=== PATIENT | female | born 1975 | race Caucasian/White ===

== ENCOUNTER 2016-10-13 14:17 | Emergency (ER) | payer MEDICAID, OTHER ==
[~2016-10-13] VITALS: Ht 165.1 cm; Wt 74.8 kg
[~2016-10-13 14:17] MED LIST: AC500T PO; ASP81TEC PO; DOCU100T7 PO; FLUO40CA12 PO; GABA-486 PO; HYDR-700 PO; IBP600T1 PO; IBUP-15 PO; PREN1TAB39 PO
[2016-10-13] MEDS ORDERED: KETOROLAC 30 MG/ML VIAL IVP ONE (14:45)
[2016-10-13] MEDS ORDERED: PROCHLORPERAZINE 10 MG/2ML INJ (COMPAZINE) IV ONE (14:45)
[2016-10-13] MEDS ORDERED: diphenhydrAMINE 50 MG/ML INJ (BENADRYL) IVP ONE (14:45)
--- NOTE | 2016-10-13 14:57 | ED Neurological Problem ---
General Chief Complaint: Trauma-Non Activation Stated Complaint: NAUSEA, HEADACHES FROM FALL History of Present Illness Time seen by provider: 14:30 Initial Comments Patient reports approximately 2 weeks ago she was leaning forward as she began to stand up she hit her head on the cabinet above her. Since then she's been having a constant headache and feels like her head is being compressed. She has tried Tylenol with no improvement in her symptoms. Timing/Duration: constant Severity: moderate Associated Symptoms: fatigue, No loss of consciousness, muscle spasms ( cervical spine), nausea/vomiting (nausea, no vomiting), No numbness in legs/feet , No paresthesia, No ringing in ears, No seizures, No slurred speech, No tingling in legs/feet, No vision changes, No weakness Allergies and Home Medications Allergies Coded Allergies: hydrocodone (Verified Allergy, Unknown, itching all over body, 01/12/15) Home Medications Fluoxetine HCl 40 Mg Capsule, 40 MG PO DAILY, (Reported) Gabapentin 100 Mg Capsule, 200 MG PO HS, (Reported) take 2 (100mg) tabs Hydroxyzine HCl 25 Mg Tablet, 25 MG PO Q8H PRN for ANXIETY, (Reported) Ibuprofen 200 Mg Tablet, 600 MG PO q6 PRN for CRAMPS, #60 Prescribed by: CANDIS BREWER on 01/20/15 1011 Constitutional: see HPI, dizziness, weakness Eyes: No Symptoms Reported, See HPI Ears, Nose, Mouth, Throat: no symptoms reported, see HPI Respiratory: no symptoms reported, see HPI Cardiovascular: no symptoms reported, see HPI Gastrointestinal: no symptoms reported, see HPI Genitourinary: no symptoms reported, see HPI Musculoskeletal: no symptoms reported, see HPI Skin: no symptoms reported, see HPI Psychiatric/Neurological: See HPI, Headache Endocrine: No Symptoms Reported, See HPI Hematologic/Lymphatic: No Symptoms Reported, See HPI All Other Systems Reviewed Negative Unless Noted: Yes Past Vdydpan-Pprkgm-Wemabz Hx Patient Social History Alcohol Use: Occasionally Uses Recreational Drug Use: Yes (marijuana- "takes for nausea") Smoking Status: Current Everyday Smoker Recent Foreign Travel: No Contact w/Someone Who Travel: No Recent Hopitalizations: Yes Immunizations Up To Date Date of Influenza Vaccine: Apr 13, 2011 Surgeries HX Surgeries: Yes (D&C/HYSTEROSCOPY/ENDOMETRIAL ABLATION 01/20/15-DR. BREWER) Surgeries: Adenoidectomy, Gallbladder, Tonsillectomy, Tubal Ligation Respiratory Hx Respiratory Disorders: Yes Respiratory Disorders: Asthma Cardiovascular Hx Cardiac Disorders: No Neurological Hx Neurological Disorders: No Reproductive System Hx Reproductive Disorders: Yes Genitourinary Hx Genitourinary Disorders: No Gastrointestinal Hx Gastrointestinal Disorders: No Musculoskeletal Hx Musculoskeletal Disorders: No (RESTLESS LEGS) Endocrine Hx Endocrine Disorders: No HEENT HX ENT Disorders: No Psychosocial Hx Psychiatric Problems: Yes Behavioral Health Disorders: Anxiety, Bipolar, Depression Integumentary HX Skin/Integumentary Disorder: No Blood Transfusions Hx Blood Disorders: No Reviewed Nursing Assessment Reviewed/Agree w Nursing PMH: Yes Physical Exam Vital Signs Vital Sign - Last 12Hours 10/13/16 14:32 Temp 97.8 Pulse 78 Resp 18 B/P (MAP) 157/94 Pulse Ox 98 O2 Delivery Room Air Capillary Refill : General Appearance: WD/WN, no apparent distress HEENT: PERRL/EOMI, normal ENT inspection, TMs normal, pharynx normal Neck: full range of motion, supple, normal inspection, tender lateral ( bilaterally) Respiratory: chest non-tender, lungs clear, normal breath sounds Cardiovascular: normal peripheral pulses, regular rate, rhythm, no edema, no murmur Gastrointestinal: normal bowel sounds, non tender, soft, No guarding, No rebound, No tenderness Extremities: normal range of motion, non-tender, normal inspection, no calf tenderness, normal capillary refill Neurologic/Psychiatric: internet marketing executive II-XII nml as tested (grossly intact), no motor/ sensory deficits, alert, oriented x 3, other (flat affect) Crainal Nerves: normal hearing, normal speech, PERRL Coordination/Gait: normal finger to nose, normal gait, negative Romberg's sign Skin: normal color, warm/dry Lymphatic: no adenopathy Progress/Results/Core Measures Results/Orders Lab Results Laboratory Tests Test 10/13/16 14:47 10/13/16 15:22 Range/Units Urine Color YELLOW Urine Clarity CLEAR Urine pH 7 5-9 Urine Specific [place] 1.005 L 1.016-1.022 Urine Protein NEGATIVE NEGATIVE Urine Glucose (UA) NEGATIVE NEGATIVE Urine Ketones NEGATIVE NEGATIVE Urine Nitrite NEGATIVE NEGATIVE Urine Bilirubin NEGATIVE NEGATIVE Urine Urobilinogen NORMAL NORMAL MG/DL Urine Leukocyte Esterase 1+ H NEGATIVE Urine RBC (Auto) 2+ H NEGATIVE Urine RBC 0-2 /HPF Urine WBC RARE /HPF Urine Squamous Epithelial Cells 5-10 /HPF Urine Crystals NONE /LPF Urine Bacteria NEGATIVE /HPF Urine Casts NONE /LPF Urine Mucus NEGATIVE /LPF Urine Culture Indicated NO White Blood Count 6.6 4.3-11.0 10^3/uL Red Blood Count 4.27 L 4.35-5.85 10^6/uL Hemoglobin 13.2 11.5-16.0 G/DL Hematocrit 38 35-52 % Mean Corpuscular Volume 89 80-99 FL Mean Corpuscular Hemoglobin 31 25-34 PG Mean Corpuscular Hemoglobin Concent 35 32-36 G/DL Red Cell Distribution Width 13.4 10.0-14.5 % Platelet Count 183 130-400 10^3/uL Mean Platelet Volume 10.1 7.4-10.4 FL Neutrophils (%) (Auto) 54 42-75 % Lymphocytes (%) (Auto) 36 12-44 % Monocytes (%) (Auto) 8 0-12 % Eosinophils (%) (Auto) 1 0-10 % Basophils (%) (Auto) 1 0-10 % Neutrophils # (Auto) 3.6 1.8-7.8 X 10^3 Lymphocytes # (Auto) 2.4 1.0-4.0 X 10^3 Monocytes # (Auto) 0.5 0.0-1.0 X 10^3 Eosinophils # (Auto) 0.1 0.0-0.3 10^3/uL Basophils # (Auto) 0.0 0.0-0.1 10^3/uL Sodium Level 143 135-145 MMOL/L Potassium Level 3.6 3.6-5.0 MMOL/L Chloride Level 111 H 98-107 MMOL/L Carbon Dioxide Level 24 21-32 MMOL/L Anion Gap 8 5-14 MMOL/L Blood Urea Nitrogen 8 7-18 MG/DL Creatinine 0.74 0.60-1.30 MG/DL Estimat Glomerular Filtration Rate > 60 BUN/Creatinine Ratio 11 Glucose Level 94 70-105 MG/DL Calcium Level 9.7 8.5-10.1 MG/DL Total Bilirubin 0.3 0.1-1.0 MG/DL Aspartate Amino Transf (AST/SGOT) 14 5-34 U/L Alanine Aminotransferase (ALT/SGPT) 15 0-55 U/L Alkaline Phosphatase 38 L 40-136 U/L Total Protein 6.8 6.4-8.2 GM/DL Albumin 4.3 3.2-4.5 GM/DL My Orders Orders - PK SHEPARDP Ct Head Wo (10/13/16 14:43) Cbc With Automated Diff (10/13/16 14:43) Comprehensive Metabolic Panel (10/13/16 14:43) Ua Culture If Indicated (10/13/16 14:43) Diphenhydramine Injection (Benadryl Inje (10/13/16 14:45) Prochlorperazine Injection (Compazine In (10/13/16 14:45) Ketorolac Injection (Toradol Injection) (10/13/16 14:45) Saline Lock/Iv-Start (10/13/16 15:35) Saline Lock/Iv-Start (10/13/16 15:36) Ns Iv 1000 Ml (Sodium Chloride 0.9%) (10/13/16 15:36) Medications Given in ED Current Medications Medications Dose Ordered Sig/Ken Route Start Time Stop Time Status Last Admin Dose Admin Diphenhydramine HCl 25 mg ONCE ONCE IVP 10/13/16 14:45 10/13/16 14:46 DC 10/13/16 15:25 25 MG Ketorolac Tromethamine 30 mg ONCE ONCE IVP 10/13/16 14:45 10/13/16 14:46 DC 10/13/16 15:27 30 MG Prochlorperazine Edisylate 10 mg ONCE ONCE IV 10/13/16 14:45 10/13/16 14:46 DC 10/13/16 15:24 10 MG Sodium Chloride 1,000 ml @ 0 mls/hr Q0M ONCE IV 10/13/16 15:36 10/13/16 15:37 DC 10/13/16 15:42 1,000 MLS/HR Vital Signs/I&O Vital Sign - Last 12Hours 10/13/16 14:32 Temp 97.8 Pulse 78 Resp 18 B/P (MAP) 157/94 Pulse Ox 98 O2 Delivery Room Air Progress Note : Time: 14:30 Progress Note Initial evaluation completed, obtain CT head, IV normal saline 1 L, Toradol 30 mg IV, Benadryl 25 mg IV, Compazine 10 mg IV, then reevaluate. 1330 patient reports slight improvement of her headache. 1400 She was able to sleep approximately 15 minutes. Reports headache has improved. 1435 Will plan for discharge after IV infuses Diagnostic Imaging Diagonstic Imaging: CT Plain Films/CT/US/NM/MRI: head Comments NAME: ROSAMARIA CONKLIN [facility] REC#: [id number] PT STATUS: REG ER : 1975 PHYSICIAN: PK SHEPARD ADMIT DATE: 10/13/16/ER Draft Date of Exam:10/13/16 CT HEAD WO PROCEDURE: CT head without contrast. TECHNIQUE: Multiple contiguous axial images were obtained through the brain without the use of intravenous contrast. INDICATION: Headache and dizziness. COMPARISON: None. FINDINGS: Ventricles are normal in size, shape and position. There is no midline shift or mass effect. There is no hemorrhage or evidence of acute ischemia. The bony calvarium is normal. IMPRESSION: No acute intracranial abnormality. Dictated on workstation # [id number] Dict: 10/13/16 1505 Trans: 10/13/16 1531 [id number] Interpreted by: ARTHUR SUAZO Electronically signed by: Reviewed: Reviewed by Me Departure Impression Impression: Primary Impression: Contusion of head Qualified Codes: S00.03XA - Contusion of scalp, initial encounter Additional Impression: Migraine Qualified Codes: G43.019 - Migraine without aura, intractable, without status migrainosus Disposition: 01 HOME, SELF-CARE Condition: Improved Departure-Patient Inst. Decision time for Depature: 16:25 Referrals: [facility] (PCP) Primary Care Physician Patient Instructions: Migraine Headache (DC), Minor Head Injury (DC) Add. Discharge Instructions: Increase water intake, one bottle every other hour. Use Excedrin for instructions on bottle for headaches. Follow-up with primary care provider if no improvement in symptoms. Return to emergency room for increased dizziness, worsening of pain, change in neurological status, or new problems. All discharge instructions reviewed with patient and/or family. Voiced understanding. Copy Copies To 1: STAR MUNSON MD, AMY ARNP Oct 13, 2016 14:57
[2016-10-13 14:58] LABS: BILIRUBIN,URINE NEGATIVE (NEGATIVE); KETONES,URINE NEGATIVE (NEGATIVE); LEUKOCYTE ESTERASE ,URINE 1+ (NEGATIVE); NITRITE,URINE NEGATIVE (NEGATIVE); PH,URINE 7 (5-9); PROTEIN,URINE NEGATIVE (NEGATIVE); UROBILINOGEN,URINE NORMAL (NORMAL)
[2016-10-13 15:08] LABS: WBC,URINE RARE /HPF
--- NOTE | 2016-10-13 15:09 | Diagnostic Imaging Report ---
PROCEDURE: CT head without contrast. TECHNIQUE: Multiple contiguous axial images were obtained through the brain without the use of intravenous contrast. INDICATION: Headache and dizziness. COMPARISON: None. FINDINGS: Ventricles are normal in size, shape and position. There is no midline shift or mass effect. There is no hemorrhage or evidence of acute ischemia. The bony calvarium is normal. IMPRESSION: No acute intracranial abnormality. Dictated by: Dictated on workstation # [id number]
[2016-10-13 15:34] LABS: BASOPHILS % (AUTO) 1 % (0-10); EOSINOPHILS # (AUTO) 0.1 10^3/uL (0.0-0.3); EOSINOPHILS % (AUTO) 1 % (0-10); LYMPHOCYTES # (AUTO) 2.4 X 10^3 (1.0-4.0); LYMPHOCYTES % (AUTO) 36 % (12-44); MEAN CORPUSCULAR HEMOGLOBIN 31 PG (25-34); MEAN CORPUSCULAR HGB CONC 35 G/DL (32-36); MEAN CORPUSCULAR VOLUME 89 FL (80-99); MEAN PLATELET VOLUME 10.1 FL (7.4-10.4); MONOCYTES # (AUTO) 0.5 X 10^3 (0.0-1.0); MONOCYTES % (AUTO) 8 % (0-12); NEUTROPHILS # (AUTO) 3.6 X 10^3 (1.8-7.8); NEUTROPHILS % (AUTO) 54 % (42-75); PLATELET COUNT 183 10^3/uL (130-400); RED BLOOD COUNT 4.27 10^6/uL (4.35-5.85); RED CELL DISTRIBUTION WIDTH 13.4 % (10.0-14.5); WHITE BLOOD COUNT 6.6 10^3/uL (4.3-11.0)
[2016-10-13] MEDS ORDERED: NS IV 1000 ML 1,000 ML IV ONE (15:36)
[2016-10-13 15:50] LABS: ALANINE AMINOTRANSFERASE 15 U/L (0-55); ALBUMIN 4.3 GM/DL (3.2-4.5); ANION GAP 8 MMOL/L (5-14); ASPARTATE AMINO TRANSFERASE 14 U/L (5-34); BILIRUBIN,TOTAL 0.3 MG/DL (0.1-1.0); BLOOD UREA NITROGEN 8 MG/DL (7-18); BUN/CREATININE RATIO 11; CALCIUM 9.7 MG/DL (8.5-10.1); CARBON DIOXIDE 24 MMOL/L (21-32); CHLORIDE 111 MMOL/L (98-107); CREATININE SERUM 0.74 MG/DL (0.60-1.30); GFR ESTIMATED > 60; GLUCOSE 94 MG/DL (70-105); POTASSIUM 3.6 MMOL/L (3.6-5.0); SODIUM 143 MMOL/L (135-145); TOTAL PROTEIN 6.8 GM/DL (6.4-8.2)
[2016-10-13 17:19] VITALS: BP 141/85
== END 2016-10-13 17:20 | disposition home or self-care (01) ==
LOC: EDUNIT# 14:17 → ER 14:20
DX: S00.93XA Contusion of unspecified part of head, initial encounter (principal); G43.909 Migraine, unspecified, not intractable, without status migrainosus; F41.9 Anxiety disorder, unspecified; F31.9 Bipolar disorder, unspecified; J45.909 Unspecified asthma, uncomplicated; F17.200 Nicotine dependence, unspecified, uncomplicated; F12.90 Cannabis use, unspecified, uncomplicated; Z90.89 Acquired absence of other organs; Z90.49 Acquired absence of other specified parts of digestive tract; Z98.51 Tubal ligation status; Z87.42 Personal history of other diseases of the female genital tract; W22.03XA Walked into furniture, initial encounter
CPT/HCPCS: 36415; 70450; 80053; 81000; 85025; 96361; 96374; 96375